=== PATIENT | male | born 1975 | race Caucasian/White ===

== ENCOUNTER 2017-11-16 17:13 | Observation (INO) | payer BC ==
[2017-11-16] MEDS ORDERED: Sodium Chloride 0.9% 1000 ML 1,000 ML IV STA (18:02)
[2017-11-16] MEDS ORDERED: Sodium Chloride 0.9% 1000 ML 1,000 ML ONE (18:06)
--- NOTE | 2017-11-16 18:06 | ERPHSYRPT ---
- History of Present Illness Time Seen by Provider: 11/16/17 17:56 Source: patient Exam Limitations: no limitations Patient Subjective Stated Complaint: patient had blood work done by his technical project lead this am and was then called this afternoon and told his blood sugar was elevated and he should get it checked. patient denies any symptoms at this time. Triage Nursing Assessment: ambulated to room per self. skin w/d, color normal, resp easy. patient denies any symptoms at this time. bs obtained and is 441 at this time. Physician History: 42-year-old white male arrives with complaint that he was told by his technical project lead in his blood sugar was elevated today. 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 He states he has not had excessive urination he does state he has been pretty thirsty for the last 3 weeks he has no fevers no nausea no vomiting. Past medical history is positive for psoriasis. Past surgical history negative Timing/Duration: today Severity: mild Modifying Factors: Improves With: nothing Associated Symptoms: other (thirsty for 3 weeks), No nausea, No vomiting, No abdominal pain, No shortness of breath, No heartburn, No diaphoresis, No cough, No chills, No chest pain, No fever, No headaches, No loss of appetite, No malaise, No rash, No syncope, No seizure, No weakness Allergies/Adverse Reactions: No Known Drug Allergies Allergy (Unverified 11/16/17 17:55) Home Medications: Etanercept [Enbrel Sureclick] 50 mg SQ UD 11/16/17 [History] Hx Tetanus, Diphtheria Vaccination/Date Given: No Hx Influenza Vaccination/Date Given: Yes Hx Pneumococcal Vaccination/Date Given: No - Review of Systems Constitutional: No Fever, No Chills Eyes: No Symptoms Ears, Nose, & Throat: No Symptoms Respiratory: No Cough, No Dyspnea Cardiac: No Chest Pain, No Edema, No Syncope Abdominal/Gastrointestinal: No Abdominal Pain, No Nausea, No Vomiting, No Diarrhea Genitourinary Symptoms: No Dysuria Musculoskeletal: No Back Pain, No Neck Pain Skin: No Rash Neurological: No Dizziness, No Focal Weakness, No Sensory Changes Psychological: No Symptoms Endocrine: No Symptoms All Other Systems: Reviewed and Negative - Past Medical History Pertinent Past Medical History: Yes Other Medical History: psoriasis - Past Surgical History Past Surgical History: No - Social History Smoking Status: Never smoker Exposure to second hand smoke: No Drug Use: marijuana Patient Lives Alone: Yes - Nursing Vital Signs Nursing Vital Signs: Initial Vital Signs Temperature 98.1 F 11/16/17 17:41 Pulse Rate 92 H 11/16/17 17:41 Respiratory Rate 16 11/16/17 17:41 Blood Pressure 150/109 11/16/17 17:41 O2 Sat by Pulse Oximetry 95 11/16/17 17:41 Pain Scale Pain Intensity 0 - Physical Exam General Appearance: no apparent distress, alert Eye Exam: PERRL/EOMI, eyes nml inspection Ears, Nose, Throat Exam: normal ENT inspection, TMs normal, pharynx normal, moist mucous membranes Neck Exam: normal inspection, non-tender, supple, full range of motion Respiratory Exam: normal breath sounds, lungs clear, No respiratory distress Cardiovascular Exam: regular rate/rhythm, normal heart sounds, normal peripheral pulses Gastrointestinal/Abdomen Exam: soft, normal bowel sounds, No tenderness, No mass Back Exam: normal inspection, normal range of motion, No CVA tenderness, No vertebral tenderness Extremity Exam: normal inspection, normal range of motion, pelvis stable Neurologic Exam: alert, oriented x 3, cooperative, normal mood/affect, nml cerebellar function, nml station & gait, sensation nml, No motor deficits Skin Exam: normal color, warm, dry, No rash Lymphatic Exam: No adenopathy SpO2 Interpretation: normal (95%) SpO2: 95 Oxygen Delivery: Room Air Ordered Tests: Active Orders 24 hr Category Date Time Status Accucheck STAT Care 11/16/17 18:02 Active IV Insertion STAT Care 11/16/17 18:02 Active CBC W DIFF Stat Lab 11/16/17 18:11 Completed CMP Stat Lab 11/16/17 18:11 Completed UA W/RFX UR CULTURE Stat Lab 11/16/17 18:56 Completed Transfer Order Routine Transfer 11/16/17 Ordered Medication Summary Discontinued Medications Generic Name Dose Route Start Last Admin Trade Name Freq PRN Reason Stop Dose Admin Sodium Chloride 1,000 mls @ 999 mls/hr 11/16/17 18:02 11/16/17 18:14 Sodium Chloride 0.9% 1000 Ml IV 11/16/17 19:02 999 mls/hr .Q1H1M STA Administration Sodium Chloride Confirm 11/16/17 18:06 Sodium Chloride 0.9% 1000 Ml Administered 11/16/17 18:07 Dose 1,000 mls @ .ROUTE .[facility] ONE Lab/Rad Data: Laboratory Result Diagrams 11/16/17 18:11 11/16/17 18:11 Laboratory Results 11/16/17 11/16/17 11/16/17 Range/Units 18:56 18:11 18:11 WBC 6.5 (4.0-10.5) K/mm3 RBC 6.08 H (4.1-5.6) M/mm3 Hgb 16.5 (12.5-18.0) gm/dl Hct 48.1 (42-50) % MCV 79.1 (78-100) fl MCH 27.1 (26-32) pg MCHC 34.3 (32-36) g/dl RDW 13.1 (11.5-14.0) % Plt Count 189 (150-450) K/mm3 MPV 11.4 H (6-9.5) fl Gran % 58.1 (36.0-66.0) % Lymphocytes % 30.8 (24.0-44.0) % Monocytes % 9.3 (0.0-12.0) % Eosinophils % 1.5 (0.00-5.0) % Basophils % 0.3 (0.0-0.4) % Basophils # 0.02 (0-0.4) Sodium 134 L (136-145) mEq/L Potassium 5.0 (3.5-5.1) mEq/L Chloride 96 L (98-107) mEq/L Carbon Dioxide 28.1 (21-32) mEq/L Anion Gap 14.7 (5-15) MEQ/L BUN 19 (9-20) mg/dL Creatinine 1.16 (0.55-1.30) mg/dl Estimated GFR > 60 ML/MIN Glucose 461 H (70-110) MG/DL Calcium 10.1 (8.5-10.1) mg/dL Total Bilirubin 0.80 (0.2-1.0) mg/dL AST 9 L (15-37) U/L ALT 54 (12-78) U/L Alkaline Phosphatase 65 (46-116) U/L Serum Total Protein 8.6 H (6.4-8.2) gm/dL Albumin 4.5 (3.4-5.0) g/dL Ur Collection Type VOID Urine Color YELLOW (YELLOW) Urine Appearance CLEAR (CLEAR) Urine pH 5.0 (5-6) Ur Specific [place] 1.015 (1.005-1.025) Urine Protein NEGATIVE (Negative) Urine Ketones NEGATIVE (NEGATIVE) Urine Blood NEGATIVE (0-5) Alberto/ul Urine Nitrite NEGATIVE (NEGATIVE) Urine Bilirubin NEGATIVE (NEGATIVE) Urine Urobilinogen NORMAL (0-1) mg/dL Ur Leukocyte Esterase NEGATIVE (NEGATIVE) Urine Culture Reflexed NO (NO) Urine Glucose 1000 (NEGATIVE) mg/dL Specimen Received 11/16/17 1900 - Departure Time of Disposition: 19:58 Departure Disposition: Observation Clinical Impression: Hyperglycemia Condition: Fair Critical Care Time: No Referrals: BRITTANEY HALEY [Primary Care Provider] -
[2017-11-16 18:17] LABS: BASOPHIL % 0.3 % (0.0-0.4); Basophil (Absolute #) 0.02 (0-0.4); Eosinophil % 1.5 % (0.00-5.0); Granulocyte Absolute (ANC) 3.79 (1.4-6.9); Granulocytes % 58.1 % (36.0-66.0); Hematocrit 48.1 % (42-50); Hemoglobin 16.5 gm/dl (12.5-18.0); Lymphocyte (Absolute #) 2.01 (1.0-4.6); Lymphocytes % 30.8 % (24.0-44.0); Mean Cell Volume 79.1 fl (78-100); Mean Corpuscular Hemoglobin 27.1 pg (26-32); Mean Corpuscular Hgb Concent. 34.3 g/dl (32-36); Mean Platelet Volume 11.4 fl (6-9.5); Monocyte (Absolute #) 0.61 (0.0-1.3); Monocytes % 9.3 % (0.0-12.0); Platelet Count 189 K/mm3 (150-450); Red Blood Count 6.08 M/mm3 (4.1-5.6); Red Cell Distribution Width 13.1 % (11.5-14.0); White Blood Count 6.5 K/mm3 (4.0-10.5)
[2017-11-16 18:46] LABS: ALBUMIN 4.5 g/dL (3.4-5.0); ALKALINE PHOSPHATASE 65 U/L (46-116); ANION GAP 14.7 MEQ/L (5-15); BLOOD UREA NITROGEN 19 mg/dL (9-20); CHLORIDE 96 mEq/L (98-107); Calcium 10.1 mg/dL (8.5-10.1); Carbon Dioxide 28.1 mEq/L (21-32); Creatinine 1 1.16 mg/dl (0.55-1.30); EST GLOMERULAR FILTRATION RATE > 60 ML/MIN; Glucose 461 MG/DL (70-110); SGPT/ALT 54 U/L (12-78); SODIUM 134 mEq/L (136-145); Total Protein 8.6 gm/dL (6.4-8.2)
[2017-11-16 19:21] LABS: Appearance CLEAR (CLEAR); Bilirubin NEGATIVE (NEGATIVE); Blood NEGATIVE Ery/ul (0-5); Glucose 1000 mg/dL (NEGATIVE); Ketones NEGATIVE (NEGATIVE); Leukocyte Esterase NEGATIVE (NEGATIVE); Nitrite NEGATIVE (NEGATIVE); Protein,Urine Dip NEGATIVE (Negative); Specific Gravity 1.015 (1.005-1.025); Urobilinogen NORMAL mg/dL (0-1)
[2017-11-16 19:24] LABS: SGOT/AST 9 U/L (15-37)
[2017-11-16] MEDS ORDERED: Sodium Chloride 0.9% 1000 ML 1,000 ML IV SCH (20:35)
[2017-11-16] MEDS ORDERED: Lantus Insulin SQ ONE (22:15)
[2017-11-16] MEDS: NovoLOG Insulin SQ PRN (22:45)
[2017-11-17 06:10] LABS: BASOPHIL % 0.4 % (0.0-0.4); Basophil (Absolute #) 0.03 (0-0.4); Eosinophil % 2.3 % (0.00-5.0); Eosinophil (Absolute #) 0.16 (0-0.5); Granulocyte Absolute (ANC) 3.39 (1.4-6.9); Hematocrit 43.9 % (42-50); Hemoglobin 14.8 gm/dl (12.5-18.0); Lymphocytes % 37.5 % (24.0-44.0); Mean Cell Volume 80.4 fl (78-100); Mean Corpuscular Hemoglobin 27.1 pg (26-32); Mean Corpuscular Hgb Concent. 33.7 g/dl (32-36); Mean Platelet Volume 11.3 fl (6-9.5); Monocyte (Absolute #) 0.75 (0.0-1.3); Monocytes % 10.8 % (0.0-12.0); Platelet Count 166 K/mm3 (150-450); Red Blood Count 5.46 M/mm3 (4.1-5.6); White Blood Count 6.9 K/mm3 (4.0-10.5)
[2017-11-17 06:36] LABS: ALBUMIN 3.7 g/dL (3.4-5.0); ALKALINE PHOSPHATASE 52 U/L (46-116); ANION GAP 13.2 MEQ/L (5-15); BLOOD UREA NITROGEN 16 mg/dL (9-20); CHLORIDE 105 mEq/L (98-107); Calcium 8.8 mg/dL (8.5-10.1); Carbon Dioxide 25.4 mEq/L (21-32); Creatinine 1 0.91 mg/dl (0.55-1.30); EST GLOMERULAR FILTRATION RATE > 60 ML/MIN; Glucose 241 MG/DL (70-110); Potassium 3.9 mEq/L (3.5-5.1); SGPT/ALT 45 U/L (12-78); SODIUM 140 mEq/L (136-145)
[2017-11-17 06:45] LABS: SGOT/AST 6 U/L (15-37)
[2017-11-17 07:18] VITALS: O2SAT 95
[2017-11-17] MEDS: NovoLOG Insulin SQ PRN ×2 (08:05→11:51)
--- NOTE | 2017-11-17 10:43 | PCM.DCORD ---
- Discharge Discharge Date: 11/17/17 Condition: Good Prescriptions: New Metformin HCl 500 mg [Glucophage 500 MG] 500 mg PO BIDWM 30 Days #60 tablet No Action Etanercept [Enbrel Sureclick] 50 mg SQ UD Additional Instructions: Keep daily log of blood sugars. 1 fasting in AM and then before meals. Have outpatient lipid panel drawn must be fasted after midnight Follow up with: BRITTANEY HALEY [Primary Care Provider] - 11/23/17 9:45 am Forms: Patient Portal Information
[2017-11-17 11:20] VITALS: BP 129/77; PULSE 67
--- NOTE | 2017-11-17 12:27 | SSS ---
DISCHARGE DIAGNOSES: 1) NEWLY DIAGNOSED DIABETES MELLITUS TYPE 2. 2) HYPERGLYCEMIA. 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 He takes Enbrel for psoriasis. They did some blood work and found his sugar to be above 500. They asked him to come to the hospital for evaluation and management. The patient reports he had been having no problems whatsoever. He had been noticing a little bit more thirst and hunger recently. PAST MEDICAL/SURGICAL HISTORY: Otherwise essentially unremarkable. HOME MEDICATIONS: He is on only the Enbrel. ALLERGIES: NKDA. PHYSICAL EXAMINATION: The patient's initial vital signs showed temperature 98.1F, pulse 92, respiratory rate 16, blood pressure 150/109. O2 saturation 95% on room air. HEENT: Normocephalic, atraumatic. Pupils equal round reactive to light. Extraocular movements intact. Oropharynx is pink and moist. NECK: Supple without lymphadenopathy, thyromegaly or JVD. CHEST: Clear to auscultation with good air movement bilaterally. HEART: Regular rate and rhythm without murmurs, rubs or gallops. ABDOMEN: Soft, nontender, nondistended without hepatosplenomegaly or palpable masses. EXTREMITIES: Without clubbing, cyanosis or edema. NEUROLOGIC: The patient is alert and oriented x3 with no focal deficits noted. LAB DATA AND TESTS: Showed hemoglobin A1C of 9.4. His initial blood sugar was 544. BUN 19, creatinine 1.37. Electrolytes were normal. Liver enzymes were normal. CBC was normal. UA which was normal expect 1,000 on the glucose. HOSPITAL COURSE: The patient was admitted to the hospital and given IV fluids and placed on low dose sliding scale coverage. By the next morning his blood sugar was down to 241. CBC was again normal. I discussed with the patient his diagnosis and placed on 200 calorie ADA diet and placed him on Glucophage 500 mg b.i.d. He will have a dietary consultation. He will be shown how to use a glucose monitor. He was asked to follow up in the office in one week and show me his sugar numbers. If he has any problems in the interim he is to call.
== END 2017-11-17 12:25 | disposition home or self-care (01) ==
LOC: ED 17:13 → MED SURG 20:30
PROVIDERS: ADMIT Family Medicine; ATTEND Family Medicine
DX: E11.65 Type 2 diabetes mellitus with hyperglycemia (principal)
CPT/HCPCS: 36000; 36415; 80053; 81002; 82962; 83036; 85025; 93268; 96360; 96365; 99285; G0378; A9270-GY